=== PATIENT | female | born 1985 | race African-American/Black ===

== ENCOUNTER 2022-10-01 01:08 | Inpatient (IN) | payer BC ==
[2022-10-01] MEDS ORDERED: SODIUM CHLORIDE 0.9% 500 ML INFUS.BAG IV ONE (01:26)
[2022-10-01] MEDS ORDERED: FOLIC ACID INJECTION - 1 MG, THIAMINE HCL 100 MG, MULTIVIT INJECTION ADULT 10 ML in SOD... IVPB ONE (01:35)
[2022-10-01 02:23] LABS: HEMOGLOBIN 10.5 GM/dL (10.7-15.3); MCH 24.8 pg (25.7-33.7); MCHC 31.8 g/dl (32.0-36.0); MEAN CELL VOLUME 78.2 fl (80-96); MEAN PLT VOLUME 8.3 fl (7.5-11.1); PLATELET COUNT 478 10^3/uL (134-434); RBC 4.22 M/mm3 (3.60-5.2); RDW 22.1 % (11.6-15.6); WHITE BLOOD COUNT 7.9 K/mm3 (4.0-10.0)
[2022-10-01] MEDS ORDERED: MELATONIN 5 MG TABLETS PO ONE (02:35)
[2022-10-01] MEDS ORDERED: MELATONIN 5 MG TABLETS ONE (02:37)
[2022-10-01] MEDS ORDERED: diazePAM 5 MG TABLET PO PRN (03:53)
[2022-10-01] MEDS ORDERED: SODIUM CHLORIDE 1,000 ML IV STA (03:55)
[2022-10-01] MEDS: diazePAM 5 MG TABLET PO SCH ×2 (04:41→10:23)
[2022-10-01] MEDS ORDERED: CALCIUM GLUC IN NACL, ISO-OSM 1 GM/50 ML BAG IVPB ONE (05:47)
[2022-10-01] MEDS ORDERED: SODIUM CHLORIDE 1,000 ML IV SCH (06:00)
[2022-10-01 06:15] VITALS: BMI 29.5
[2022-10-01] MEDS: HEPARIN NA (PORCINE) 5,000 UNITS/ML 1ML VIAL SQ SCH ×2 (06:19→15:06)
[2022-10-01 08:28] LABS: ANISOCYTOSIS 1+; MACROCYTOSIS 0
[2022-10-01 08:52] LABS: MAGNESIUM 1.7 mg/dL (1.8-2.4)
[2022-10-01 08:55] LABS: CREATININE 0.8 mg/dL (0.55-1.3); PHOSPHOROUS 4.3 mg/dL (2.5-4.9)
[2022-10-01 08:56] LABS: BILIRUBIN,TOTAL 1.2 mg/dL (0.2-1); TOT PROT 7.2 g/dl (6.4-8.2)
[2022-10-01 08:57] LABS: ALBUMIN 3.6 g/dl (3.4-5.0); BLOOD UREA NITROGEN 10.9 mg/dL (7-18); CALCIUM 9.4 mg/dL (8.5-10.1)
[2022-10-01] MEDS ORDERED: FOLIC ACID 1 MG TABLET (FP) PO SCH (10:00)
[2022-10-01] MEDS ORDERED: THIAMINE HCL 100 MG TABLET (FP) PO SCH (10:00)
[2022-10-01] MEDS ORDERED: FLUTICASONE PROP 0.05% 16 GM NASAL SPRAY NS SCH (10:00)
[2022-10-01] MEDS ORDERED: MAGNESIUM SULFATE IN WATER 2 GM/50 ML IVPB IVPB ONE (12:28)
[2022-10-01 12:53] LABS: URINE APPEARANCE CLEAR; URINE BILIRUBIN NEGATIVE (NEGATIVE); URINE COLOR YELLOW; URINE GLUCOSE (UA) NEGATIVE (NEGATIVE); URINE KETONE TRACE (NEGATIVE); URINE LEUK ESTERASE NEGATIVE (NEGATIVE); URINE NITRITE NEGATIVE (NEGATIVE); URINE PROTEIN TRACE (NEGATIVE)
[2022-10-01 13:36] VITALS: BP 143/94; PULSE 92; RESP 20; TEMP 98.3
[2022-10-01] MEDS ORDERED: ACETAMINOPHEN 325 MG TABLET (FP) PO PRN (14:50)
[2022-10-02] MEDS ORDERED: diazePAM 5 MG TABLET PO SCH (06:00)
[2022-10-03] MEDS ORDERED: diazePAM 5 MG TABLET PO SCH (06:00)
[2022-10-04] MEDS ORDERED: diazePAM 5 MG TABLET PO ONE (06:00)
== END 2022-10-01 16:10 | disposition other institution (70) | DRG 469 ==
LOC: JER 01:08 → JERBED 03:24 → J7W 05:42
PROVIDERS: ADMIT Internal Medicine; ATTEND Internal Medicine
DX: N17.9 Acute kidney failure, unspecified (principal); E03.9 Hypothyroidism, unspecified; F10.230 Alcohol dependence with withdrawal, uncomplicated; R25.2 Cramp and spasm; R94.31 Abnormal electrocardiogram [ECG] [EKG]; D64.9 Anemia, unspecified; R73.9 Hyperglycemia, unspecified; F12.20 Cannabis dependence, uncomplicated
CPT/HCPCS: 0241U-QW; 36415; 80053; 81003; 82436; 82570; 82728; 82962; 83036; 83550; 83735; 84100; 84133; 84156; 84300; 84439; 84484; 85025; 85045; 93005; 93010; 99285-25; J1644

== ENCOUNTER 2022-10-01 16:40 | Inpatient (IN) | payer BC ==
[2022-10-01 17:22] VITALS: BMI 28.5
[2022-10-01] MEDS ORDERED: IBUPROFEN 600 MG TABLET (FP) PO PRN (17:47)
[2022-10-01] MEDS ORDERED: LOPERAMIDE HCL 2 MG CAPSULE PO PRN (17:47)
[2022-10-01] MEDS ORDERED: P-EPHED 60MG/TRIPROLIDI 2.5MG TABLET PO PRN (17:47)
[2022-10-01] MEDS ORDERED: MAG HYDROX/AL HYDROX/SIMETH 30 ML UNIT-DOSE CUP PO PRN (17:47)
[2022-10-01] MEDS ORDERED: BENZOCAINE/MENTHOL (CHLORASEPTIC ) LOZENGE MM PRN (17:47)
[2022-10-01] MEDS ORDERED: ACETAMINOPHEN 325 MG TABLET (FP) PO PRN ×2 (17:47)
[2022-10-01] MEDS ORDERED: MAGNESIUM HYDROX 2400MG/30ML ORAL SUSPENSION 30 ML CUP PO PRN (17:47)
[2022-10-01] MEDS ORDERED: guaiFENesin 200 MG/10 ML 10 ML UNIT-DOSE CUPS PO PRN (17:47)
[2022-10-01] MEDS ORDERED: POLYETHYLENE GLYCOL (HEALTHYLAX) 3350 17 GM PACKET PO PRN (17:47)
[2022-10-01] MEDS ORDERED: BISMUTH SUBSALICYLATE 524 MG/30 ML PO PRN (17:47)
[2022-10-01] MEDS ORDERED: ONDANSETRON *ODT* 4 MG TABLET SL PRN (17:47)
[2022-10-01] MEDS ORDERED: DICYCLOMINE HCL 10 MG CAPSULE PO PRN (17:47)
[2022-10-01] MEDS ORDERED: IBUPROFEN 400 MG TABLET (FP) PO PRN (17:47)
[2022-10-01] MEDS ORDERED: chlordiazePOXIDE HCL 25 MG CAPSULE PO PRN (17:49)
[2022-10-01] MEDS: METHOCARBAMOL 500 MG TABLET PO PRN (19:40)
[2022-10-01] MEDS: hydrOXYzine PAMOATE 25 MG CAPSULE (FP) PO PRN (19:42)
[2022-10-01] MEDS: THIAMINE HCL 100 MG TABLET (FP) PO SCH (22:12)
[2022-10-01] MEDS: MELATONIN 5 MG TABLETS PO PRN (22:12)
[2022-10-01] MEDS: chlordiazePOXIDE HCL 25 MG CAPSULE PO SCH (22:12)
[2022-10-02] MEDS ORDERED: cloNIDine HCL 0.1 MG TABLET PO ONE (00:17)
[2022-10-02] MEDS: chlordiazePOXIDE HCL 25 MG CAPSULE PO SCH ×4 (06:14→22:31)
[2022-10-02] MEDS: PRENATAL VITAMINS W/ FOLIC ACID TABLET (FP) PO SCH (10:07)
[2022-10-02] MEDS: FLUTICASONE PROP 0.05% 16 GM NASAL SPRAY NS SCH (10:08)
[2022-10-02] MEDS: FOLIC ACID 1 MG TABLET (FP) PO SCH (10:08)
[2022-10-02 11:19] LABS: CALCIUM 9.4 mg/dL (8.5-10.1)
[2022-10-02 11:20] LABS: ALBUMIN 3.7 g/dl (3.4-5.0); BLOOD UREA NITROGEN 8.9 mg/dL (7-18)
[2022-10-02 11:24] LABS: BILIRUBIN,TOTAL 0.8 mg/dL (0.2-1); TOT PROT 7.3 g/dl (6.4-8.2)
[2022-10-02] MEDS: hydrOXYzine PAMOATE 25 MG CAPSULE (FP) PO PRN (17:25)
[2022-10-02] MEDS: THIAMINE HCL 100 MG TABLET (FP) PO SCH (22:30)
[2022-10-03] MEDS: chlordiazePOXIDE HCL 25 MG CAPSULE PO SCH ×4 (06:11→22:16)
[2022-10-03] MEDS: FLUTICASONE PROP 0.05% 16 GM NASAL SPRAY NS SCH (10:20)
[2022-10-03] MEDS: FOLIC ACID 1 MG TABLET (FP) PO SCH (10:20)
[2022-10-03] MEDS: PRENATAL VITAMINS W/ FOLIC ACID TABLET (FP) PO SCH (10:20)
[2022-10-03] MEDS ORDERED: COLLOIDAL OATMEAL 1 BAR EACH TP PRN (12:50)
[2022-10-03] MEDS ORDERED: cloNIDine HCL 0.1 MG TABLET PO ONE (14:00)
[2022-10-03] MEDS: hydrOXYzine PAMOATE 25 MG CAPSULE (FP) PO PRN (17:15)
[2022-10-03] MEDS: METHOCARBAMOL 500 MG TABLET PO PRN (22:16)
[2022-10-03] MEDS: THIAMINE HCL 100 MG TABLET (FP) PO SCH (22:16)
[2022-10-04] MEDS ORDERED: chlordiazePOXIDE HCL 10 MG CAPSULE PO PRN
[2022-10-04] MEDS: chlordiazePOXIDE HCL 10 MG CAPSULE PO SCH ×4 (05:28→22:06)
[2022-10-04] MEDS ORDERED: LEVOTHYROXINE NA 50 MCG TABLET (FP) PO SCH (07:00)
[2022-10-04] MEDS: FOLIC ACID 1 MG TABLET (FP) PO SCH (10:06)
[2022-10-04] MEDS: PRENATAL VITAMINS W/ FOLIC ACID TABLET (FP) PO SCH (10:06)
[2022-10-04] MEDS: FLUTICASONE PROP 0.05% 16 GM NASAL SPRAY NS SCH (10:10)
[2022-10-04] MEDS: hydrOXYzine PAMOATE 25 MG CAPSULE (FP) PO PRN ×2 (14:08→22:06)
[2022-10-04] MEDS: METHOCARBAMOL 500 MG TABLET PO PRN ×2 (14:08→20:04)
[2022-10-04] MEDS: THIAMINE HCL 100 MG TABLET (FP) PO SCH (22:06)
[2022-10-04] MEDS: MELATONIN 5 MG TABLETS PO PRN (22:09)
[2022-10-05] MEDS ORDERED: chlordiazePOXIDE HCL 10 MG CAPSULE PO SCH (05:00)
[2022-10-05] MEDS ORDERED: LEVOTHYROXINE NA 25 MCG TABLET (FP) PO SCH (07:00)
[2022-10-05] MEDS: FOLIC ACID 1 MG TABLET (FP) PO SCH (09:55)
[2022-10-05] MEDS: FLUTICASONE PROP 0.05% 16 GM NASAL SPRAY NS SCH (09:55)
[2022-10-05] MEDS: PRENATAL VITAMINS W/ FOLIC ACID TABLET (FP) PO SCH (09:55)
[2022-10-05 11:06] VITALS: BP 142/93; PULSE 89; RESP 16; TEMP 97
[2022-10-06] MEDS ORDERED: chlordiazePOXIDE HCL 10 MG CAPSULE PO ONE (05:00)
== END 2022-10-05 10:00 | disposition home or self-care (01) | DRG 775 ==
LOC: YASAS 16:40 → Y3N 18:27
PROVIDERS: ADMIT Allergy & Immunology; ATTEND Family Medicine
PROC: HZ2ZZZZ Detoxification Services for Substance Abuse Treatment (ICD-10-PCS; principal; 2022-10-01)
DX: F10.230 Alcohol dependence with withdrawal, uncomplicated (principal); F12.20 Cannabis dependence, uncomplicated; D64.9 Anemia, unspecified; E03.9 Hypothyroidism, unspecified; G47.00 Insomnia, unspecified; R03.0 Elevated blood-pressure reading, without diagnosis of hypertension; Z88.6 Allergy status to analgesic agent
CPT/HCPCS: 36415; 80053; 81025; 84443; 93005; 93010; C9803-CS; U0003; U0005

== ENCOUNTER 2023-08-14 00:52 | Inpatient (IN) | payer BC ==
[2023-08-14 01:17] VITALS: BMI 28.5
[2023-08-14] MEDS ORDERED: BENZONATATE 200 MG CAPSULE PO PRN (02:10)
[2023-08-14] MEDS ORDERED: MAGNESIUM HYDROX 2400MG/30ML ORAL SUSPENSION 30 ML CUP PO PRN (02:10)
[2023-08-14] MEDS ORDERED: LOPERAMIDE HCL 2 MG CAPSULE PO PRN (02:10)
[2023-08-14] MEDS ORDERED: NALOXONE HCL 0.4 MG/ML VIAL IM PRN (02:10)
[2023-08-14] MEDS ORDERED: BISMUTH SUBSALICYLATE 524 MG/30 ML PO PRN (02:10)
[2023-08-14] MEDS ORDERED: guaiFENesin 600 MG TABLET.ER (FP) PO PRN (02:10)
[2023-08-14] MEDS ORDERED: POLYETHYLENE GLYCOL (HEALTHYLAX) 3350 17 GM PACKET PO PRN (02:10)
[2023-08-14] MEDS ORDERED: MAG HYDROX/AL HYDROX/SIMETH 30 ML UNIT-DOSE CUP PO PRN (02:10)
[2023-08-14] MEDS ORDERED: IBUPROFEN 400 MG TABLET (FP) PO PRN (02:10)
[2023-08-14] MEDS ORDERED: NALOXONE HCL (KLOXXADO) 8 MG SPRAY NS PRN (02:10)
[2023-08-14] MEDS ORDERED: BENZOCAINE/MENTHOL (CHLORASEPTIC ) LOZENGE MM PRN (02:10)
[2023-08-14] MEDS ORDERED: ACETAMINOPHEN 325 MG TABLET (FP) PO PRN (02:10)
[2023-08-14] MEDS ORDERED: ONDANSETRON *ODT* 4 MG TABLET ONE (02:19)
[2023-08-14] MEDS: ONDANSETRON *ODT* 4 MG TABLET SL PRN ×2 (02:21→09:14)
[2023-08-14] MEDS ORDERED: hydrOXYzine PAMOATE 25 MG CAPSULE (FP) PO ONE (03:11)
[2023-08-14] MEDS: hydrOXYzine PAMOATE 25 MG CAPSULE (FP) PO PRN ×3 (03:13→22:16)
[2023-08-14] MEDS: PRENATAL VITAMINS W/ FOLIC ACID TABLET (FP) PO SCH (10:29)
[2023-08-14] MEDS: FAMOTIDINE 20 MG TABLET PO SCH (10:29)
[2023-08-14] MEDS: diazePAM 5 MG TABLET PO SCH ×3 (10:30→22:16)
[2023-08-14] MEDS ORDERED: cloNIDine HCL 0.1 MG TABLET PO PRN (14:18)
[2023-08-14] MEDS ORDERED: COLLOIDAL OATMEAL 1 BAR EACH TP PRN (18:21)
[2023-08-14] MEDS ORDERED: propRANOLol HCL 10 MG TABLET PO ONE (18:24)
[2023-08-14] MEDS: MELATONIN 5 MG TABLETS PO SCH (22:16)
[2023-08-14] MEDS: THIAMINE HCL 100 MG TABLET (FP) PO SCH (22:16)
[2023-08-15] MEDS: diazePAM 5 MG TABLET PO SCH ×3 (05:33→22:06)
[2023-08-15] MEDS: LEVOTHYROXINE NA 25 MCG TABLET (FP) PO SCH (06:14)
[2023-08-15] MEDS: PRENATAL VITAMINS W/ FOLIC ACID TABLET (FP) PO SCH (10:15)
[2023-08-15] MEDS: FAMOTIDINE 20 MG TABLET PO SCH (10:15)
[2023-08-15 10:24] LABS: HEMATOCRIT 34.5 % (32.4-45.2); HEMOGLOBIN 11.5 GM/dL (10.7-15.3); MCH 29.3 pg (25.7-33.7); MCHC 33.3 g/dl (32.0-36.0); MEAN PLT VOLUME 10.4 fl (7.5-11.1); PLATELET COUNT 89 10^3/uL (134-434); RBC 3.92 M/mm3 (3.60-5.2); RDW 16.1 % (11.6-15.6)
[2023-08-15 10:26] LABS: POTASSIUM 3.7 mmol/L (3.5-5.1)
[2023-08-15 10:29] LABS: BLOOD UREA NITROGEN 7.7 mg/dL (7-18); CALCIUM 8.3 mg/dL (8.5-10.1)
[2023-08-15 10:30] LABS: ALBUMIN 3.8 g/dl (3.4-5.0)
[2023-08-15 10:32] LABS: CREATININE 0.9 mg/dL (0.55-1.3)
[2023-08-15 10:34] LABS: BILIRUBIN,TOTAL 1.3 mg/dL (0.2-1); TOT PROT 7.7 g/dl (6.4-8.2); WHITE BLOOD COUNT 1.9 K/mm3 (4.0-10.0)
[2023-08-15] MEDS: IBUPROFEN 600 MG TABLET (FP) PO PRN (21:31)
[2023-08-15] MEDS: THIAMINE HCL 100 MG TABLET (FP) PO SCH (22:05)
[2023-08-15] MEDS: MELATONIN 5 MG TABLETS PO SCH (22:05)
[2023-08-15] MEDS: hydrOXYzine PAMOATE 25 MG CAPSULE (FP) PO PRN (22:05)
[2023-08-16] MEDS: diazePAM 5 MG TABLET PO SCH ×2 (05:46→17:40)
[2023-08-16] MEDS: IBUPROFEN 600 MG TABLET (FP) PO PRN (05:49)
[2023-08-16] MEDS: LEVOTHYROXINE NA 25 MCG TABLET (FP) PO SCH (06:30)
[2023-08-16] MEDS: PRENATAL VITAMINS W/ FOLIC ACID TABLET (FP) PO SCH (10:00)
[2023-08-16] MEDS: FAMOTIDINE 20 MG TABLET PO SCH (10:00)
[2023-08-16 10:18] VITALS: RESP 17
[2023-08-16] MEDS ORDERED: METHOCARBAMOL 750 MG TABLET PO SCH (10:30)
[2023-08-16] MEDS: METHOCARBAMOL 500 MG TABLET PO SCH ×2 (10:47→17:40)
[2023-08-16 17:24] VITALS: BP 124/81; PULSE 91; TEMP 98.2
[2023-08-16] MEDS: hydrOXYzine PAMOATE 25 MG CAPSULE (FP) PO PRN (17:41)
[2023-08-17] MEDS ORDERED: diazePAM 5 MG TABLET PO ONE (06:00)
== END 2023-08-16 18:10 | disposition other institution (70) | DRG 775 ==
LOC: YASAS 00:52 → Y6N 03:02
PROVIDERS: ADMIT Allergy & Immunology; ATTEND Surgery
PROC: HZ2ZZZZ Detoxification Services for Substance Abuse Treatment (ICD-10-PCS; principal; 2023-08-14)
DX: F10.230 Alcohol dependence with withdrawal, uncomplicated (principal); F12.20 Cannabis dependence, uncomplicated; F17.210 Nicotine dependence, cigarettes, uncomplicated; F10.282 Alcohol dependence with alcohol-induced sleep disorder; F10.24 Alcohol dependence with alcohol-induced mood disorder; D61.818 Other pancytopenia; E03.9 Hypothyroidism, unspecified; Z62.810 Personal history of physical and sexual abuse in childhood; Z87.42 Personal history of other diseases of the female genital tract
CPT/HCPCS: 36415; 80053; 80307; 81025; 82746; 85027; 86780; 87635; 87811; Q0162

== ENCOUNTER 2023-08-16 18:35 | Inpatient (IN) | payer BC ==
[2023-08-16] MEDS ORDERED: P-EPHED 60MG/TRIPROLIDI 2.5MG TABLET PO PRN (18:58)
[2023-08-16] MEDS ORDERED: hydrOXYzine PAMOATE 25 MG CAPSULE (FP) PO PRN (18:58)
[2023-08-16] MEDS ORDERED: LOPERAMIDE HCL 2 MG CAPSULE PO PRN (18:58)
[2023-08-16] MEDS ORDERED: BENZONATATE 200 MG CAPSULE PO PRN (18:58)
[2023-08-16] MEDS ORDERED: NICOTINE POLACRILEX 2 MG GUM BUC PRN (18:58)
[2023-08-16] MEDS ORDERED: guaiFENesin 600 MG TABLET.ER (FP) PO PRN (18:58)
[2023-08-16] MEDS ORDERED: MAG HYDROX/AL HYDROX/SIMETH 30 ML UNIT-DOSE CUP PO PRN (18:58)
[2023-08-16] MEDS ORDERED: MAGNESIUM HYDROX 2400MG/30ML ORAL SUSPENSION 30 ML CUP PO PRN (18:58)
[2023-08-16] MEDS: MELATONIN 5 MG TABLETS PO SCH (21:12)
[2023-08-16] MEDS: THIAMINE HCL 100 MG TABLET (FP) PO SCH (21:12)
[2023-08-17] MEDS: LEVOTHYROXINE NA 25 MCG TABLET (FP) PO SCH (06:49)
[2023-08-17] MEDS: ACETAMINOPHEN 325 MG TABLET (FP) PO PRN ×2 (06:50→09:52)
[2023-08-17] MEDS ORDERED: LEVOTHYROXINE NA 50 MCG TABLET (FP) PO SCH (07:00)
[2023-08-17] MEDS: COLLOIDAL OATMEAL 1 BAR EACH TP PRN (08:24)
[2023-08-17] MEDS: DOCUSATE SODIUM 100 MG CAPSULE (FP) PO PRN (09:49)
[2023-08-17] MEDS: FOLIC ACID 1 MG TABLET (FP) PO SCH (09:49)
[2023-08-17] MEDS: PRENATAL VITAMINS W/ FOLIC ACID TABLET (FP) PO SCH (09:49)
[2023-08-17] MEDS: PANTOPRAZOLE 20 MG TABLET PO SCH (09:50)
[2023-08-17] MEDS: THIAMINE HCL 100 MG TABLET (FP) PO SCH ×2 (09:50→22:05)
[2023-08-17] MEDS ORDERED: PATIENT'S OWN MEDICATION (NON-FORMULARY) (Omeprazole [Omeprazole] 20 MG Tablet.Dr) PO SCH (10:00)
[2023-08-17] MEDS ORDERED: FLUCONAZOLE 150 MG TABLET PO ONE (10:00)
[2023-08-17 11:42] LABS: HEMOGLOBIN 9.5 GM/dL (10.7-15.3); MCH 24.8 pg (25.7-33.7); MCHC 30.5 g/dl (32.0-36.0); MEAN CELL VOLUME 81.3 fl (80-96); MEAN PLT VOLUME 8.5 fl (7.5-11.1); PLATELET COUNT 233 10^3/uL (134-434); RBC 3.82 M/mm3 (3.60-5.2); RDW 21.9 % (11.6-15.6); WHITE BLOOD COUNT 5.7 K/mm3 (4.0-10.0)
[2023-08-17 11:44] LABS: EPI CELLS >36 /uL (0-25.1); HYALINE CASTS 3 /uL (0-3.1); PH,URINE 5.5 (5.0-8.0); URINE APPEARANCE TURBID; URINE BACTERIA 801 /uL (0-1359); URINE BILIRUBIN NEGATIVE (NEGATIVE); URINE COLOR DK YELLOW; URINE GLUCOSE (UA) NEGATIVE (NEGATIVE); URINE KETONE TRACE (NEGATIVE); URINE LEUK ESTERASE TRACE (NEGATIVE); URINE NITRITE NEGATIVE (NEGATIVE); URINE PROTEIN TRACE (NEGATIVE); URINE WBC 24 /uL (0-25.8)
[2023-08-17 11:46] LABS: URINE RBC 20.1 /uL (0-23.9)
[2023-08-17 13:22] LABS: HIV INTERPRETATION NEGATIVE (NEGATIVE)
[2023-08-17] MEDS: MELATONIN 5 MG TABLETS PO SCH (22:05)
[2023-08-18] MEDS: ACETAMINOPHEN 325 MG TABLET (FP) PO PRN (00:28)
[2023-08-18] MEDS ORDERED: hydrOXYzine PAMOATE 25 MG CAPSULE (FP) PO ONE (00:33)
[2023-08-18] MEDS: LEVOTHYROXINE NA 25 MCG TABLET (FP) PO SCH (06:35)
[2023-08-18] MEDS: PANTOPRAZOLE 20 MG TABLET PO SCH (10:15)
[2023-08-18] MEDS: PRENATAL VITAMINS W/ FOLIC ACID TABLET (FP) PO SCH (10:15)
[2023-08-18] MEDS: FOLIC ACID 1 MG TABLET (FP) PO SCH (10:16)
[2023-08-18] MEDS: DOCUSATE SODIUM 100 MG CAPSULE (FP) PO PRN (10:16)
[2023-08-18] MEDS: THIAMINE HCL 100 MG TABLET (FP) PO SCH ×2 (10:17→21:31)
[2023-08-18] MEDS: MELATONIN 5 MG TABLETS PO SCH (22:59)
[2023-08-19] MEDS: LEVOTHYROXINE NA 25 MCG TABLET (FP) PO SCH (06:19)
[2023-08-19] MEDS: ACETAMINOPHEN 325 MG TABLET (FP) PO PRN ×2 (06:19→11:50)
[2023-08-19] MEDS: PANTOPRAZOLE 20 MG TABLET PO SCH (09:59)
[2023-08-19] MEDS: FOLIC ACID 1 MG TABLET (FP) PO SCH (09:59)
[2023-08-19] MEDS: FERROUS SO4 325 MG TABLET (FP) PO SCH (10:00)
[2023-08-19] MEDS: PRENATAL VITAMINS W/ FOLIC ACID TABLET (FP) PO SCH (10:00)
[2023-08-19] MEDS: THIAMINE HCL 100 MG TABLET (FP) PO SCH ×2 (10:01→21:53)
[2023-08-19] MEDS: hydrOXYzine PAMOATE 25 MG CAPSULE (FP) PO PRN (10:03)
[2023-08-19] MEDS: LIDOCAINE 4% PATCH TP SCH (14:57)
[2023-08-19] MEDS: LIDOCAINE PATCH REMOVAL MC SCH (21:53)
[2023-08-19] MEDS: MELATONIN 5 MG TABLETS PO SCH (21:53)
[2023-08-19] MEDS: BACLOFEN 10 MG TABLET (FP) PO SCH (21:55)
[2023-08-20] MEDS: hydrOXYzine PAMOATE 25 MG CAPSULE (FP) PO PRN (01:03)
[2023-08-20] MEDS: SUVOREXANT 5 MG TABLET PO PRN ×2 (01:04→23:15)
[2023-08-20] MEDS: LEVOTHYROXINE NA 25 MCG TABLET (FP) PO SCH (06:06)
[2023-08-20] MEDS: ACETAMINOPHEN 325 MG TABLET (FP) PO PRN (06:12)
[2023-08-20] MEDS: PRENATAL VITAMINS W/ FOLIC ACID TABLET (FP) PO SCH (09:31)
[2023-08-20] MEDS: FERROUS SO4 325 MG TABLET (FP) PO SCH (09:31)
[2023-08-20] MEDS: BACLOFEN 10 MG TABLET (FP) PO SCH ×2 (09:31→21:27)
[2023-08-20] MEDS: PANTOPRAZOLE 20 MG TABLET PO SCH (09:31)
[2023-08-20] MEDS: LIDOCAINE 4% PATCH TP SCH (09:31)
[2023-08-20] MEDS: CALCIUM 500MG/VIT-D 200 UNITS COMBO TABLET (FP) PO SCH (09:31)
[2023-08-20] MEDS: THIAMINE HCL 100 MG TABLET (FP) PO SCH ×2 (09:31→21:27)
[2023-08-20] MEDS: FOLIC ACID 1 MG TABLET (FP) PO SCH (09:31)
[2023-08-20 11:43] LABS: INR 0.86 (0.83-1.09)
[2023-08-20 13:40] LABS: HIV INTERPRETATION NEGATIVE (NEGATIVE)
[2023-08-20 14:17] LABS: PH,URINE 5.5 (5.0-8.0); URINE APPEARANCE CLEAR; URINE BILIRUBIN NEGATIVE (NEGATIVE); URINE COLOR YELLOW; URINE GLUCOSE (UA) NEGATIVE (NEGATIVE); URINE KETONE NEGATIVE (NEGATIVE); URINE LEUK ESTERASE NEGATIVE (NEGATIVE); URINE NITRITE NEGATIVE (NEGATIVE); URINE PROTEIN NEGATIVE (NEGATIVE); URINE UROBILINOGEN 0.2 mg/dL (0.2-1.0)
[2023-08-20] MEDS: LIDOCAINE PATCH REMOVAL MC SCH (21:26)
[2023-08-20] MEDS: MELATONIN 5 MG TABLETS PO SCH (21:26)
[2023-08-21] MEDS: ACETAMINOPHEN 325 MG TABLET (FP) PO PRN (05:35)
[2023-08-21] MEDS: LEVOTHYROXINE NA 25 MCG TABLET (FP) PO SCH (06:06)
[2023-08-21] MEDS: FERROUS SO4 325 MG TABLET (FP) PO SCH (10:13)
[2023-08-21] MEDS: PRENATAL VITAMINS W/ FOLIC ACID TABLET (FP) PO SCH (10:13)
[2023-08-21] MEDS: FOLIC ACID 1 MG TABLET (FP) PO SCH (10:13)
[2023-08-21] MEDS: BACLOFEN 10 MG TABLET (FP) PO SCH ×2 (10:13→21:38)
[2023-08-21] MEDS: PANTOPRAZOLE 20 MG TABLET PO SCH (10:13)
[2023-08-21] MEDS: THIAMINE HCL 100 MG TABLET (FP) PO SCH ×2 (10:13→21:38)
[2023-08-21] MEDS: CALCIUM 500MG/VIT-D 200 UNITS COMBO TABLET (FP) PO SCH (10:13)
[2023-08-21] MEDS: LIDOCAINE 4% PATCH TP SCH (10:15)
[2023-08-21] MEDS: LIDOCAINE PATCH REMOVAL MC SCH (21:38)
[2023-08-21] MEDS: hydrOXYzine PAMOATE 25 MG CAPSULE (FP) PO PRN (21:39)
[2023-08-21] MEDS: MAGNESIUM OXIDE 400 MG TABLET (FP) PO SCH (21:40)
[2023-08-21] MEDS: traZODone HCL 100 MG TABLET (FP) PO PRN (22:57)
[2023-08-22] MEDS: LEVOTHYROXINE NA 25 MCG TABLET (FP) PO SCH (06:01)
[2023-08-22] MEDS: PRENATAL VITAMINS W/ FOLIC ACID TABLET (FP) PO SCH (10:02)
[2023-08-22] MEDS: FOLIC ACID 1 MG TABLET (FP) PO SCH (10:02)
[2023-08-22] MEDS: LIDOCAINE 4% PATCH TP SCH (10:02)
[2023-08-22] MEDS: BACLOFEN 10 MG TABLET (FP) PO SCH ×2 (10:02→21:23)
[2023-08-22] MEDS: MAGNESIUM OXIDE 400 MG TABLET (FP) PO SCH ×2 (10:02→21:23)
[2023-08-22] MEDS: FERROUS SO4 325 MG TABLET (FP) PO SCH (10:02)
[2023-08-22] MEDS: THIAMINE HCL 100 MG TABLET (FP) PO SCH ×2 (10:02→21:23)
[2023-08-22] MEDS: CALCIUM 500MG/VIT-D 200 UNITS COMBO TABLET (FP) PO SCH (10:02)
[2023-08-22] MEDS: PANTOPRAZOLE 20 MG TABLET PO SCH (10:03)
[2023-08-22] MEDS: LIDOCAINE PATCH REMOVAL MC SCH (21:21)
[2023-08-22] MEDS: traZODone HCL 100 MG TABLET (FP) PO PRN (22:59)
[2023-08-23] MEDS: LEVOTHYROXINE NA 25 MCG TABLET (FP) PO SCH (06:18)
[2023-08-23] MEDS: CALCIUM 500MG/VIT-D 200 UNITS COMBO TABLET (FP) PO SCH (09:41)
[2023-08-23] MEDS: FOLIC ACID 1 MG TABLET (FP) PO SCH (09:41)
[2023-08-23] MEDS: MAGNESIUM OXIDE 400 MG TABLET (FP) PO SCH ×2 (09:41→21:25)
[2023-08-23] MEDS: THIAMINE HCL 100 MG TABLET (FP) PO SCH ×2 (09:41→21:25)
[2023-08-23] MEDS: PANTOPRAZOLE 20 MG TABLET PO SCH (09:41)
[2023-08-23] MEDS: BACLOFEN 10 MG TABLET (FP) PO SCH ×2 (09:41→21:25)
[2023-08-23] MEDS: FERROUS SO4 325 MG TABLET (FP) PO SCH (09:41)
[2023-08-23] MEDS: LIDOCAINE 4% PATCH TP SCH (09:42)
[2023-08-23] MEDS: PRENATAL VITAMINS W/ FOLIC ACID TABLET (FP) PO SCH (09:42)
[2023-08-23] MEDS: ACETAMINOPHEN 325 MG TABLET (FP) PO PRN (16:41)
[2023-08-23] MEDS: LIDOCAINE PATCH REMOVAL MC SCH (21:25)
[2023-08-23] MEDS: traZODone HCL 100 MG TABLET (FP) PO PRN (22:28)
[2023-08-24] MEDS: LEVOTHYROXINE NA 25 MCG TABLET (FP) PO SCH (06:12)
[2023-08-24] MEDS: ACETAMINOPHEN 325 MG TABLET (FP) PO PRN ×2 (06:13→18:12)
[2023-08-24] MEDS: MAGNESIUM OXIDE 400 MG TABLET (FP) PO SCH ×2 (09:46→21:21)
[2023-08-24] MEDS: THIAMINE HCL 100 MG TABLET (FP) PO SCH ×2 (09:46→21:20)
[2023-08-24] MEDS: FOLIC ACID 1 MG TABLET (FP) PO SCH (09:46)
[2023-08-24] MEDS: CALCIUM 500MG/VIT-D 200 UNITS COMBO TABLET (FP) PO SCH (09:46)
[2023-08-24] MEDS: BACLOFEN 10 MG TABLET (FP) PO SCH ×2 (09:46→21:21)
[2023-08-24] MEDS: PANTOPRAZOLE 20 MG TABLET PO SCH (09:46)
[2023-08-24] MEDS: PRENATAL VITAMINS W/ FOLIC ACID TABLET (FP) PO SCH (09:47)
[2023-08-24] MEDS: LIDOCAINE 4% PATCH TP SCH (09:48)
[2023-08-24] MEDS: FERROUS SO4 325 MG TABLET (FP) PO SCH (11:00)
[2023-08-24] MEDS: BACITRACIN 0.9 GM PACKET TP SCH ×2 (11:00→21:22)
[2023-08-24] MEDS: hydrOXYzine PAMOATE 25 MG CAPSULE (FP) PO PRN (13:06)
[2023-08-24] MEDS: DOCUSATE SODIUM 100 MG CAPSULE (FP) PO PRN (13:06)
[2023-08-24] MEDS: LIDOCAINE PATCH REMOVAL MC SCH (21:22)
[2023-08-24] MEDS: traZODone HCL 100 MG TABLET (FP) PO PRN ×2 (21:24→22:55)
[2023-08-25] MEDS: hydrOXYzine PAMOATE 25 MG CAPSULE (FP) PO PRN ×2 (01:21→22:40)
[2023-08-25] MEDS: LEVOTHYROXINE NA 25 MCG TABLET (FP) PO SCH (06:39)
[2023-08-25] MEDS: BACLOFEN 10 MG TABLET (FP) PO SCH ×2 (09:52→21:39)
[2023-08-25] MEDS: LIDOCAINE 4% PATCH TP SCH (09:52)
[2023-08-25] MEDS: PRENATAL VITAMINS W/ FOLIC ACID TABLET (FP) PO SCH (09:52)
[2023-08-25] MEDS: MAGNESIUM OXIDE 400 MG TABLET (FP) PO SCH ×2 (09:52→21:39)
[2023-08-25] MEDS: THIAMINE HCL 100 MG TABLET (FP) PO SCH ×2 (09:52→21:39)
[2023-08-25] MEDS: CALCIUM 500MG/VIT-D 200 UNITS COMBO TABLET (FP) PO SCH (09:52)
[2023-08-25] MEDS: PANTOPRAZOLE 20 MG TABLET PO SCH (09:52)
[2023-08-25] MEDS: DOCUSATE SODIUM 100 MG CAPSULE (FP) PO PRN (09:52)
[2023-08-25] MEDS: ACETAMINOPHEN 325 MG TABLET (FP) PO PRN (09:53)
[2023-08-25] MEDS: BACITRACIN 0.9 GM PACKET TP SCH ×2 (10:25→21:41)
[2023-08-25] MEDS: FOLIC ACID 1 MG TABLET (FP) PO SCH (10:34)
[2023-08-25] MEDS: BENZOCAINE/MENTHOL (CHLORASEPTIC ) LOZENGE MM PRN (10:36)
[2023-08-25] MEDS: COLLOIDAL OATMEAL 1 BAR EACH TP PRN (10:37)
[2023-08-25] MEDS: FERROUS SO4 325 MG TABLET (FP) PO SCH (11:43)
[2023-08-25] MEDS ORDERED: NALTREXONE MICROSPHERES (VIVITROL) 380 MG DISP.SYRIN IM ONE (14:57)
[2023-08-25] MEDS ORDERED: NALTREXONE HCL 50 MG TABLET PO SCH (15:15)
[2023-08-25] MEDS: LIDOCAINE PATCH REMOVAL MC SCH (21:39)
[2023-08-25] MEDS: traZODone HCL 100 MG TABLET (FP) PO PRN (22:39)
[2023-08-26] MEDS: LEVOTHYROXINE NA 25 MCG TABLET (FP) PO SCH (06:12)
[2023-08-26] MEDS: LIDOCAINE 4% PATCH TP SCH (10:22)
[2023-08-26] MEDS: PRENATAL VITAMINS W/ FOLIC ACID TABLET (FP) PO SCH (10:22)
[2023-08-26] MEDS: FERROUS SO4 325 MG TABLET (FP) PO SCH (10:23)
[2023-08-26] MEDS: MAGNESIUM OXIDE 400 MG TABLET (FP) PO SCH ×2 (10:23→21:17)
[2023-08-26] MEDS: NALTREXONE HCL 50 MG TABLET PO SCH (10:23)
[2023-08-26] MEDS: FOLIC ACID 1 MG TABLET (FP) PO SCH (10:23)
[2023-08-26] MEDS: THIAMINE HCL 100 MG TABLET (FP) PO SCH ×2 (10:23→21:17)
[2023-08-26] MEDS: BACLOFEN 10 MG TABLET (FP) PO SCH ×2 (10:23→21:17)
[2023-08-26] MEDS: PANTOPRAZOLE 20 MG TABLET PO SCH (10:23)
[2023-08-26] MEDS: BACITRACIN 0.9 GM PACKET TP SCH ×2 (10:24→21:19)
[2023-08-26] MEDS: CALCIUM 500MG/VIT-D 200 UNITS COMBO TABLET (FP) PO SCH (10:25)
[2023-08-26] MEDS: hydrOXYzine PAMOATE 25 MG CAPSULE (FP) PO PRN ×2 (10:25→22:46)
[2023-08-26] MEDS: POLYETHYLENE GLYCOL (HEALTHYLAX) 3350 17 GM PACKET PO PRN (10:28)
[2023-08-26] MEDS: LIDOCAINE PATCH REMOVAL MC SCH (21:19)
[2023-08-26] MEDS: traZODone HCL 100 MG TABLET (FP) PO PRN (22:46)
[2023-08-27] MEDS: POLYETHYLENE GLYCOL (HEALTHYLAX) 3350 17 GM PACKET PO PRN (06:13)
[2023-08-27] MEDS: LEVOTHYROXINE NA 25 MCG TABLET (FP) PO SCH (06:13)
[2023-08-27 07:00] VITALS: RESP 18
[2023-08-27] MEDS: PRENATAL VITAMINS W/ FOLIC ACID TABLET (FP) PO SCH (09:51)
[2023-08-27] MEDS: BACLOFEN 10 MG TABLET (FP) PO SCH ×2 (09:51→21:24)
[2023-08-27] MEDS: NALTREXONE HCL 50 MG TABLET PO SCH (09:51)
[2023-08-27] MEDS: LIDOCAINE 4% PATCH TP SCH (09:51)
[2023-08-27] MEDS: FERROUS SO4 325 MG TABLET (FP) PO SCH (09:51)
[2023-08-27] MEDS: THIAMINE HCL 100 MG TABLET (FP) PO SCH ×2 (09:51→21:24)
[2023-08-27] MEDS: PANTOPRAZOLE 20 MG TABLET PO SCH (09:51)
[2023-08-27] MEDS: MAGNESIUM OXIDE 400 MG TABLET (FP) PO SCH ×2 (09:51→21:24)
[2023-08-27] MEDS: FOLIC ACID 1 MG TABLET (FP) PO SCH (09:51)
[2023-08-27] MEDS: CALCIUM 500MG/VIT-D 200 UNITS COMBO TABLET (FP) PO SCH (09:52)
[2023-08-27] MEDS: BACITRACIN 0.9 GM PACKET TP SCH ×2 (09:52→21:51)
[2023-08-27] MEDS: hydrOXYzine PAMOATE 25 MG CAPSULE (FP) PO PRN ×3 (09:54→22:55)
[2023-08-27] MEDS: ACETAMINOPHEN 325 MG TABLET (FP) PO PRN (19:03)
[2023-08-27] MEDS: BENZOCAINE/MENTHOL (CHLORASEPTIC ) LOZENGE MM PRN (20:29)
[2023-08-27] MEDS: LIDOCAINE PATCH REMOVAL MC SCH (21:51)
[2023-08-27] MEDS: traZODone HCL 100 MG TABLET (FP) PO PRN (22:55)
[2023-08-28] MEDS: LEVOTHYROXINE NA 25 MCG TABLET (FP) PO SCH (06:01)
[2023-08-28] MEDS: FERROUS SO4 325 MG TABLET (FP) PO SCH (09:58)
[2023-08-28] MEDS: PANTOPRAZOLE 20 MG TABLET PO SCH (09:58)
[2023-08-28] MEDS: BACLOFEN 10 MG TABLET (FP) PO SCH ×2 (09:58→21:16)
[2023-08-28] MEDS: FOLIC ACID 1 MG TABLET (FP) PO SCH (09:58)
[2023-08-28] MEDS: CALCIUM 500MG/VIT-D 200 UNITS COMBO TABLET (FP) PO SCH (09:58)
[2023-08-28] MEDS: THIAMINE HCL 100 MG TABLET (FP) PO SCH ×2 (09:58→21:16)
[2023-08-28] MEDS: PRENATAL VITAMINS W/ FOLIC ACID TABLET (FP) PO SCH (09:58)
[2023-08-28] MEDS: MAGNESIUM OXIDE 400 MG TABLET (FP) PO SCH ×2 (09:58→21:16)
[2023-08-28] MEDS: LIDOCAINE 4% PATCH TP SCH (09:59)
[2023-08-28] MEDS: hydrOXYzine PAMOATE 25 MG CAPSULE (FP) PO PRN ×2 (09:59→19:42)
[2023-08-28] MEDS ORDERED: NALTREXONE MICROSPHERES (VIVITROL) 380 MG DISP.SYRIN IM ONE (10:00)
[2023-08-28] MEDS: BACITRACIN 0.9 GM PACKET TP SCH ×2 (10:01→21:15)
[2023-08-28] MEDS: ACETAMINOPHEN 325 MG TABLET (FP) PO PRN (17:22)
[2023-08-28] MEDS: BENZOCAINE/MENTHOL (CHLORASEPTIC ) LOZENGE MM PRN (17:23)
[2023-08-28] MEDS: LIDOCAINE PATCH REMOVAL MC SCH (21:15)
[2023-08-28] MEDS: traZODone HCL 100 MG TABLET (FP) PO PRN (22:46)
[2023-08-29] MEDS: LEVOTHYROXINE NA 25 MCG TABLET (FP) PO SCH (06:03)
[2023-08-29] MEDS: hydrOXYzine PAMOATE 25 MG CAPSULE (FP) PO PRN (06:03)
[2023-08-29 06:21] VITALS: BP 115/64; PULSE 69; TEMP 97.4
[2023-08-29] MEDS: PRENATAL VITAMINS W/ FOLIC ACID TABLET (FP) PO SCH (09:46)
[2023-08-29] MEDS: PANTOPRAZOLE 20 MG TABLET PO SCH (09:46)
[2023-08-29] MEDS: MAGNESIUM OXIDE 400 MG TABLET (FP) PO SCH (09:46)
[2023-08-29] MEDS: BACLOFEN 10 MG TABLET (FP) PO SCH (09:46)
[2023-08-29] MEDS: THIAMINE HCL 100 MG TABLET (FP) PO SCH (09:46)
[2023-08-29] MEDS: FOLIC ACID 1 MG TABLET (FP) PO SCH (09:46)
[2023-08-29] MEDS: FERROUS SO4 325 MG TABLET (FP) PO SCH (09:46)
[2023-08-29] MEDS: LIDOCAINE 4% PATCH TP SCH (09:47)
[2023-08-29] MEDS: BACITRACIN 0.9 GM PACKET TP SCH (09:47)
[2023-08-29] MEDS: CALCIUM 500MG/VIT-D 200 UNITS COMBO TABLET (FP) PO SCH (09:48)
== END 2023-08-29 15:45 | disposition home or self-care (01) | DRG 772 ==
LOC: YASAS 18:35 → Y5N 18:37
PROVIDERS: ADMIT Allergy & Immunology; ATTEND Psychiatry & Neurology Pain Medicine
PROC: HZ42ZZZ Group Counseling for Substance Abuse Treatment, Cognitive-Behavioral (ICD-10-PCS; principal; 2023-08-16)
DX: F10.20 Alcohol dependence, uncomplicated (principal); F12.20 Cannabis dependence, uncomplicated; F17.210 Nicotine dependence, cigarettes, uncomplicated; F10.282 Alcohol dependence with alcohol-induced sleep disorder; F10.24 Alcohol dependence with alcohol-induced mood disorder; D64.9 Anemia, unspecified; E03.9 Hypothyroidism, unspecified; G47.00 Insomnia, unspecified; K21.9 Gastro-esophageal reflux disease without esophagitis; R25.2 Cramp and spasm; M62.831 Muscle spasm of calf; N80.9 Endometriosis, unspecified; Z97.5 Presence of (intrauterine) contraceptive device; T25.222A Burn of second degree of left foot, initial encounter; X11.8XXA Contact with other hot tap-water, initial encounter; Y92.230 Patient room in hospital as the place of occurrence of the external cause; Z56.0 Unemployment, unspecified; Z88.8 Allergy status to other drugs, medicaments and biological substances
CPT/HCPCS: 36415; 81003; 82140; 85027; 85610; 86695; 86696; 86803; 87389; 87491; 87591; 87661; J0475; J2315

== ENCOUNTER 2023-08-17 16:58 | Emergency (ER) | payer BC ==
[2023-08-17 17:09] VITALS: BP 146/107; PULSE 100; RESP 18; TEMP 98.2; BMI 26.5
[2023-08-17] MEDS ORDERED: ACETAMINOPHEN 1000 MG/100 ML BAG IVPB ONE (18:10)
[2023-08-17] MEDS ORDERED: METHOCARBAMOL 500 MG TABLET PO ONE (18:26)
[2023-08-17] MEDS ORDERED: METHOCARBAMOL 500 MG TABLET ONE (18:53)
[2023-08-17] MEDS ORDERED: ACETAMINOPHEN INJECTION 100 ML IVPB ONE (18:53)
[2023-08-17 19:36] LABS: BASO % 0.8 % (0-2.0); EOS % 1.7 % (0-4.5); HEMOGLOBIN 9.1 GM/dL (10.7-15.3); LYMPH % 34.5 % (8-40); MCH 24.8 pg (25.7-33.7); MCHC 30.3 g/dl (32.0-36.0); MEAN CELL VOLUME 81.7 fl (80-96); MEAN PLT VOLUME 8.3 fl (7.5-11.1); MONO % 5.3 % (3.8-10.2); NEUT % 57.7 % (42.8-82.8); PLATELET COUNT 236 10^3/uL (134-434); RBC 3.67 M/mm3 (3.60-5.2); RDW 22.3 % (11.6-15.6); WHITE BLOOD COUNT 5.2 K/mm3 (4.0-10.0)
[2023-08-17 19:40] LABS: EPI CELLS >36 /uL (0-25.1); HYALINE CASTS 1 /uL (0-3.1); PH,URINE 5.5 (5.0-8.0); URINE APPEARANCE Error; URINE BACTERIA 7138 /uL (0-1359); URINE BILIRUBIN NEGATIVE (NEGATIVE); URINE COLOR YELLOW; URINE GLUCOSE (UA) NEGATIVE (NEGATIVE); URINE KETONE TRACE (NEGATIVE); URINE LEUK ESTERASE 2+ (NEGATIVE); URINE NITRITE NEGATIVE (NEGATIVE); URINE PROTEIN TRACE (NEGATIVE); URINE WBC 74 /uL (0-25.8)
[2023-08-17 19:56] LABS: CALCIUM 8.8 mg/dL (8.5-10.1)
[2023-08-17 19:57] LABS: ALBUMIN 3.4 g/dl (3.4-5.0); BLOOD UREA NITROGEN 11.9 mg/dL (7-18)
[2023-08-17 20:00] LABS: CREATININE 0.8 mg/dL (0.55-1.3)
[2023-08-17 20:03] LABS: BILIRUBIN,TOTAL 0.4 mg/dL (0.2-1); TOT PROT 7.4 g/dl (6.4-8.2)
[2023-08-17] MEDS ORDERED: LACTATED RINGERS SOLUTION 1000 ML INFUS.BAG IV ONE (20:35)
[2023-08-17 23:02] LABS: ANISOCYTOSIS 2+; MACROCYTOSIS 0; OVALOCYTE 2+; TEAR DROP CELLS 2+
== END 2023-08-17 23:31 | disposition home or self-care (01) ==
LOC: JER 16:58
PROC: 3E033NZ Introduction of Analgesics, Hypnotics, Sedatives into Peripheral Vein, Percutaneous Approach (ICD-10-PCS; principal; 2023-08-17)
DX: R79.89 Other specified abnormal findings of blood chemistry (principal); M79.10 Myalgia, unspecified site; M79.604 Pain in right leg; M79.605 Pain in left leg; R74.8 Abnormal levels of other serum enzymes
CPT/HCPCS: 36415; 80053; 81003; 82550; 82553; 83735; 85025; 87086; 93005; 93010; 99284-25